=== PATIENT | female | born 1960 | race Hispanic/Latino ===

== ENCOUNTER 2017-10-16 06:59 | Day surgery (SDC) | payer OTHER ==
[2017-10-15 15:01] VITALS: BP 118/70
[2017-10-15 15:08] LABS: APPEARANCE,URINE Clear (CLEAR); BILIRUBIN,URINE Negative (NEGATIVE); COLOR,URINE STRAW (YELLOW); GLUCOSE, URINE (UA) >=1000 mg/dL (NEGATIVE); KETONES,URINE Negative (NEGATIVE); LEUKOCYTE ESTERASE ,URINE Negative (NEGATIVE); NITRATE,URINE Negative (NEGATIVE); OCCULT BLOOD,URINE Negative (NEGATIVE); PH,URINE 6.5 (5.0-8.0); PROTEIN,URINE Negative (NEGATIVE)
[2017-10-15 15:15] LABS: BASOPHILS % (AUTO) 0.5 % (0.0-5.0); EOSINOPHILS % (AUTO) 1.8 % (0.0-8.0); HEMATOCRIT 37.1 % (36-48); LYMPHOCYTES % (AUTO) 26.6 % (21.0-51.0); MEAN CORPUSCULAR HEMOGLOBIN 26.6 pg (27.0-33.0); MEAN CORPUSCULAR HGB CONC 33.9 g/dL (32.0-36.0); MEAN CORPUSCULAR VOLUME 78.6 fL (79-99); MONOCYTES % (AUTO) 8.9 % (3.0-13.0); NEUTROPHILS % (AUTO) 62.2 % (40.0-77.0); PLATELET COUNT (AUTO) 212 K/uL (130-400); RED BLOOD CELL COUNT(AUTO) 4.72 MIL/uL (4.00-5.50); RED CELL DISTRIBUTION WIDTH 14.5 % (11.0-15.5); WHITE BLOOD COUNT (AUTO) 7.4 K/uL (4.8-10.8)
[2017-10-15 15:16] LABS: CREATININE 0.7 mg/dL (0.5-1.5)
[2017-10-15 15:20] LABS: INR 0.97 (0.85-1.15); PARTIAL THROMBOPLASTIN TIME 26.2 SEC (26.3-35.5); PROTHROMBIN TIME 10.2 SEC (9.6-11.6)
[2017-10-15 15:46] LABS: BACTERIA,URINE Rare /HPF (None Seen); RBC,URINE None Seen /HPF (0-1); SQUAMOUS EPITHELIAL CELL,UR None Seen /HPF (0-2); WBC,URINE 0-1 /HPF (0-1)
[2017-10-16] VITALS (11 sets, daily range): BP systolic 101–131; BP diastolic 48–68
[~2017-10-16] VITALS: Ht 168.9 cm; Wt 88.3 kg
[~2017-10-16 06:59] MED LIST: ASPI-555 PO; CANA300T PO; CHOL500050 PO; DULO30CA2 PO; GABA-531 PO; HYDR-3421 PO; INSU100I15 SQ; INSU300I SQ; LISI-613 PO; LORA-705 PO; LOVA20TA3 PO; METF-527 PO; TRAZ-185 PO
[2017-10-16] MEDS ORDERED: SODIUM CHLORIDE 0.9% 1000ML 1,000 ML IV ONE ×2 (07:13→07:37)
[2017-10-16] MEDS ORDERED: HEPARIN SODIUM 1000UNIT/ML 10ML VIAL ONE (07:45)
[2017-10-16] MEDS ORDERED: ISOVUE-370 50ML VIAL IV ONE ×2 (07:46→08:56)
[2017-10-16] MEDS ORDERED: IOPAMIDOL-370 100 ML VIAL IV ONE ×2 (07:46→07:56)
[2017-10-16] MEDS ORDERED: NITROGLYCERIN 5 MG/ML 10 ML VIAL IV ONE (07:46)
[2017-10-16] MEDS ORDERED: LIDOCAINE HCL-MPF 2% 5ML VIAL ONE (07:54)
[2017-10-16] MEDS ORDERED: BIVALIRUDIN 250 MG/VIAL IV ONE (07:56)
[2017-10-16] MEDS ORDERED: MIDAZOLAM HCL 1 MG/ML 2ML VIAL ONE (07:57)
[2017-10-16] MEDS ORDERED: ONDANSETRON HCL 4 MG/2 ML VIAL ONE (07:59)
[2017-10-16] MEDS ORDERED: SODIUM CHLORIDE 0.9% 500ML 500 ML IV SCH (08:00)
[2017-10-16] MEDS ORDERED: SODIUM CHLORIDE 0.9% 1000ML 1,000 ML IV SCH (09:08)
[2017-10-16] MEDS ORDERED: GLUCAGON 1MG KIT 1 MG ML IM PRN (09:15)
[2017-10-16] MEDS ORDERED: DEXTROSE 50%-WATER 50 ML DISP.SYRIN IV PRN (09:15)
[2017-10-16] MEDS ORDERED: INSULIN HUMULIN R 100 UNIT/ML 3ML SQ SCH (11:30)
[2017-10-16] MEDS ORDERED: ACETAMINOPHEN 325 MG TAB ONE (12:49)
== END 2017-10-16 14:00 | disposition home or self-care (01) ==
LOC: DAH 06:59
PROVIDERS: ATTEND Internal Medicine Cardiovascular Disease
DX: I25.10 Atherosclerotic heart disease of native coronary artery without angina pectoris (principal); I99.8 Other disorder of circulatory system; E11.9 Type 2 diabetes mellitus without complications; I10 Essential (primary) hypertension; E78.4 Other hyperlipidemia; F32.89 Other specified depressive episodes; M19.90 Unspecified osteoarthritis, unspecified site; Z90.49 Acquired absence of other specified parts of digestive tract; Z98.890 Other specified postprocedural states; Z79.82 Long term (current) use of aspirin; Z79.4 Long term (current) use of insulin
CPT/HCPCS: 36415; 71045; 80048; 81001; 82948; 85025; 85610; 85730; 93005; 93458; 99152; 99153; A4606; C1760; C1894; J0583; J1644; J2250; J2405; J3490; J7030; Q9967

== ENCOUNTER 2023-01-23 08:03 | Observation (INO) | payer OTHER ==
[2023-01-22 14:01] LABS: BASOPHILS # (AUTO) 0.03 K/uL (0.00-0.20); BASOPHILS % (AUTO) 0.6 % (0.0-5.0); EOSINOPHILS # (AUTO) 0.12 K/uL (0.00-0.70); EOSINOPHILS % (AUTO) 2.2 % (0.0-8.0); HEMATOCRIT 37.4 % (36-48); IMMATURE GRANULOCYTE ABSOLUTE 0.02 K/uL (0-1); LYMPHOCYTES # (AUTO) 1.4 K/uL (1.0-4.8); LYMPHOCYTES % (AUTO) 25.2 % (21.0-51.0); MEAN CORPUSCULAR HEMOGLOBIN 26.7 pg (27.0-33.0); MEAN CORPUSCULAR HGB CONC 32.4 g/dL (32.0-36.0); MEAN CORPUSCULAR VOLUME 82.6 fL (79-99); MONOCYTES # (AUTO) 0.4 K/uL (0.1-1.0); NEUTROPHILS # (AUTO) 3.5 K/uL (1.8-7.7); NEUTROPHILS % (AUTO) 64.6 % (40.0-77.0); PLATELET COUNT (AUTO) 151 K/uL (130-400); RED BLOOD CELL COUNT(AUTO) 4.53 MIL/uL (4.00-5.50); RED CELL DISTRIBUTION WIDTH 13.6 % (11.0-15.5); WHITE BLOOD COUNT (AUTO) 5.4 K/uL (4.8-10.8)
[2023-01-22 14:10] LABS: CREATININE 0.9 mg/dL (0.5-1.5); POTASSIUM 4.1 mmol/L (3.5-5.1)
[2023-01-22 15:01] VITALS: BP 117/59; PULSE 64; RESP 17
[~2023-01-23] VITALS: Ht 167.6 cm; Wt 74.3 kg
[2023-01-23] VITALS (23 sets, daily range): BP systolic 103–131; BP diastolic 52–69; PULSE 65–84; RESP 11–18
[~2023-01-23 08:03] MED LIST changes: -ASPI-555 PO; +ASPI-556 PO; +ASPI1TAB7 PO; -CANA300T PO; +DULA3PEN SQ; -DULO30CA2 PO; +FREM225A SQ; -GABA-531 PO; -INSU100I15 SQ; -INSU300I SQ; +KETO.5OS OD; +KRIL500C PO; -LISI-613 PO; +LISI2.5T13 PO; -LORA-705 PO; -LOVA20TA3 PO; +LOVA40TA2 PO; -METF-527 PO; +METO-408 PO; +MONT-39 PO; +TOPI100T37 PO; +VIBE75TA PO; +[UNRECOGNIZED DRUG - CODE] PO
[2023-01-23] MEDS ORDERED: 0.9%NACL 1000ML 1,000 ML IV ONE (09:16)
[2023-01-23] MEDS ORDERED: CEFAZOLIN SODIUM 1 GM VIAL ONE (09:16)
[2023-01-23] MEDS ORDERED: LIDOCAINE PF 100MG/5ML (2%) SYRINGE 5ML ONE (10:54)
[2023-01-23] MEDS ORDERED: PROPOFOL 10 MG/ML 20ML VIAL IV ONE (10:56)
[2023-01-23] MEDS ORDERED: ROCURONIUM 10MG/1ML SYR 10 MG/ML ML ONE ×2 (10:57→11:50)
[2023-01-23] MEDS ORDERED: MIDAZOLAM HCL 1 MG/ML 2ML VIAL ONE (10:57)
[2023-01-23] MEDS ORDERED: FENTANYL CITRATE PF 50 MCG/1 ML 2ML VIAL ONE ×2 (10:57→11:51)
[2023-01-23] MEDS ORDERED: DEXAMETHASONE SOD PHOSPHATE 10MG/ML 1ML VIAL ONE (11:16)
[2023-01-23] MEDS ORDERED: PHENYLEPHRINE HCL 10 MG/ML 1ML VIAL IV ONE (11:23)
[2023-01-23] MEDS ORDERED: NEOSTIGMINE 5MG/5ML SYR IV ONE (11:23)
[2023-01-23] MEDS ORDERED: GLYCOPYRROLATE 1 MG/5 ML SYRINGE ONE (11:26)
[2023-01-23] MEDS ORDERED: ONDANSETRON 4MG INJ ONE ×2 (11:26→15:11)
[2023-01-23] MEDS ORDERED: CEFAZOLIN SODIUM 2 GM VIAL IVPB ONE (11:42)
[2023-01-23] MEDS ORDERED: ATROPINE 1MG SYG IVP ONE (11:52)
[2023-01-23] MEDS ORDERED: TRANEXAMIC ACID 1000MG/10ML ONE (11:59)
[2023-01-23] MEDS ORDERED: BUPIVACAINE/PF 0.25% 30ML VIAL IJ ONE (12:58)
[2023-01-23] MEDS ORDERED: CALDOLOR 800MG+NS 250ML 250 ML IV ONE (13:30)
[2023-01-23] MEDS ORDERED: HYDROCODONE PO (13:30)
[2023-01-23] MEDS ORDERED: APAP PO (13:30)
[2023-01-23] MEDS ORDERED: CEFAZOLIN SODIUM 1 GM VIAL IVPB ONE (13:30)
[2023-01-23] MEDS: HYDROCODONE/ACETAMINOPHEN 10/325 MG TAB PO PRN ×2 (14:52→20:26)
[2023-01-23] MEDS ORDERED: CEFAZOLIN SODIUM 2 GM VIAL ONE (15:12)
[2023-01-24] MEDS: HYDROCODONE/ACETAMINOPHEN 10/325 MG TAB PO PRN ×5 (00:25→17:45)
[2023-01-24 04:05] VITALS: BP 115/52; PULSE 66; RESP 18
[2023-01-24 08:00] VITALS: BP 109/49; PULSE 69; RESP 17
[2023-01-24 08:20] VITALS: O2SAT 99
[2023-01-24 12:00] VITALS: BP 107/77; PULSE 63; RESP 18
[2023-01-24 16:00] VITALS: BP 140/67; PULSE 72; RESP 17
== END 2023-01-24 18:15 | disposition home or self-care (01) ==
LOC: DAH 08:03 → DAHIP 08:04 → DAH 08:04 → 4BH 18:00
PROVIDERS: ADMIT Orthopaedic Surgery; ATTEND Orthopaedic Surgery
DX: M17.12 Unilateral primary osteoarthritis, left knee (principal); Z20.822 Contact with and (suspected) exposure to COVID-19; I10 Essential (primary) hypertension; E78.00 Pure hypercholesterolemia, unspecified; F41.8 Other specified anxiety disorders; K21.9 Gastro-esophageal reflux disease without esophagitis; E66.9 Obesity, unspecified; E11.9 Type 2 diabetes mellitus without complications; Z79.899 Other long term (current) drug therapy
CPT/HCPCS: 80048; 85025; 87426; 36415; 97039 ×4; 96365; 96368; 27599; 64447; 82948 ×6; 97161; 97116; 97530; A6260; G0378 ×24; A4649 ×4; C1713 ×2; L1830; J7030 ×2; J3010 ×2; J0690 ×3; J3490 ×3; J1100; J2710; J2001; J0461; J2250; J2704; J2405 ×2; J2371; J1741; A6223; G0168; C1776 ×2; A6212

== ENCOUNTER → 2023-04-26 | Outpatient (CLI) | payer OTHER ==
[~2023-04-26] MED LIST changes: +APAP PO; +HYDROCODONE PO
== END | disposition home or self-care (01) ==
LOC: RAH 10:43
PROVIDERS: ATTEND Internal Medicine Gastroenterology
DX: R68.81 Early satiety (principal); R10.13 Epigastric pain
CPT/HCPCS: 78264; A9541

== ENCOUNTER 2023-08-23 17:13 | Emergency (ER) | payer OTHER ==
[~2023-08-23] VITALS: Ht 167.6 cm; Wt 73.9 kg
[2023-08-23 17:20] VITALS: BP 129/69; PULSE 62; RESP 18; O2SAT 100
[2023-08-23 18:05] LABS: BASOPHILS # (AUTO) 0.02 K/uL (0.00-0.20); BASOPHILS % (AUTO) 0.4 % (0.0-5.0); EOSINOPHILS % (AUTO) 1.9 % (0.0-8.0); HEMATOCRIT 35.8 % (36-48); IMMATURE GRANULOCYTE ABSOLUTE 0.02 K/uL (0-1); LYMPHOCYTES # (AUTO) 1.6 K/uL (1.0-4.8); LYMPHOCYTES % (AUTO) 30.4 % (21.0-51.0); MEAN CORPUSCULAR HEMOGLOBIN 26.2 pg (27.0-33.0); MEAN CORPUSCULAR VOLUME 79.4 fL (79-99); MONOCYTES # (AUTO) 0.5 K/uL (0.1-1.0); MONOCYTES % (AUTO) 10.1 % (3.0-13.0); NEUTROPHILS # (AUTO) 2.9 K/uL (1.8-7.7); NEUTROPHILS % (AUTO) 56.8 % (40.0-77.0); PLATELET COUNT (AUTO) 135 K/uL (130-400); RED BLOOD CELL COUNT(AUTO) 4.51 MIL/uL (4.00-5.50); RED CELL DISTRIBUTION WIDTH 14.2 % (11.0-15.5); WHITE BLOOD COUNT (AUTO) 5.2 K/uL (4.8-10.8)
[2023-08-23 18:14] LABS: APPEARANCE,URINE CLEAR (CLEAR); BILIRUBIN,URINE NEGATIVE (NEGATIVE); COLOR,URINE LIGHT-YELLOW (YELLOW); GLUCOSE, URINE (UA) NEGATIVE (NEGATIVE); KETONES,URINE NEGATIVE (NEGATIVE); LEUKOCYTE ESTERASE ,URINE NEGATIVE Leu/uL (NEGATIVE); NITRATE,URINE NEGATIVE (NEGATIVE); OCCULT BLOOD,URINE NEGATIVE (NEGATIVE); PROTEIN,URINE NEGATIVE (NEGATIVE); UROBILINOGEN,URINE 0.2 mg/dL (0.2-1.0)
[2023-08-23 18:23] LABS: HCG,QUALITATIVE URINE NEGATIVE (NEGATIVE)
[2023-08-23 18:25] LABS: CREATININE 0.9 mg/dL (0.5-1.5); POTASSIUM 3.7 mmol/L (3.5-5.1)
[2023-08-23 18:25] LABS: ADD UA MICROSCOPIC NO
[2023-08-23 18:29] LABS: ALBUMIN 3.7 g/dL (3.5-5.0); BILIRUBIN,TOTAL 0.3 mg/dL (0.2-1.0); TOTAL PROTEIN, SERUM 7.4 g/dL (6.0-8.3)
[2023-08-23] MEDS: LACTATED RINGERS 1000ML 1,000 ML IV ONE (19:10)
[2023-08-23] MEDS: METOCLOPRAMIDE 10 MG/2 ML VIAL IVP ONE (19:11)
[2023-08-23] MEDS ORDERED: ONDA4TAB10 PO (22:20)
[2023-08-23] MEDS ORDERED: METO5 PO (22:26)
== END 2023-08-23 23:06 | disposition home or self-care (01) ==
LOC: EDH 17:13
DX: R10.9 Unspecified abdominal pain (principal); F41.9 Anxiety disorder, unspecified; F32.A Depression, unspecified; E78.00 Pure hypercholesterolemia, unspecified; I10 Essential (primary) hypertension; K31.84 Gastroparesis; E11.9 Type 2 diabetes mellitus without complications; Z79.82 Long term (current) use of aspirin; Z79.899 Other long term (current) drug therapy; Z90.49 Acquired absence of other specified parts of digestive tract; Z98.51 Tubal ligation status
CPT/HCPCS: 99285; 74176; 96374; 71045; 83735; 84484; 80053; 83690; 85025; 81003; 81025; 36415; 93005 ×2; J7120; J2765

== ENCOUNTER → 2025-05-25 | Outpatient (CLI) | payer OTHER, MEDICAID ==
[~2025-05-25] MED LIST changes: +METO5 PO; +TOPI-258 PO; -TOPI100T37 PO
[2025-05-25 12:48] LABS: CREATININE 0.8 mg/dL (0.5-1.0); GLOMERULAR FILTR. RATE CALC 82.0 mL/min (>90); UREA NITROGEN, BLOOD 15.0 mg/dL (7-18)
== END | disposition home or self-care (01) ==
LOC: LAB 11:48
PROVIDERS: ATTEND Internal Medicine Gastroenterology
DX: R10.12 Left upper quadrant pain (principal)
CPT/HCPCS: 36415; 82565; 84520

== ENCOUNTER → 2025-06-01 | Outpatient (CLI) | payer OTHER, MEDICAID ==
[~2025-06-01] MED LIST changes: +IOHEXOL 350 MG/ML 100ML INFUS..BTL IV ONE
--- NOTE | 2025-06-01 16:28 | HMCIMG ---
EXAM: CT SCAN OF THE ABDOMEN AND PELVIS WITH CONTRAST Clinical statement: Left upper quadrant pain. STUDY PROTOCOL: CT radiation dose protocol was performed in accordance with the principles of ALARA. A multislice CT scan of the abdomen and pelvis was performed with intravenous and oral contrast. Sections are obtained from the diaphragms to the inguinal region, including portal venous and delayed excretory phase (7-minute renal delay) images. RADIATION DOSE: CTDIvol 17.80 mGy; DLP 989.60 mGycm. CONTRAST: Standard dose of intravenous and oral contrast administered. COMPARISON: None provided. FINDINGS: LUNG BASE: No evidence of pleural effusion, atelectasis, or consolidation in the visualized lung bases. LIVER: Liver is normal in size, morphology, and attenuation with smooth margins. Mild diffuse hepatic steatosis is present. A few tiny calcified nodules are seen, likely sequelae of prior granulomatous disease. No focal hepatic mass or biliary ductal dilatation is identified. [place] hepatis is unremarkable. Portal vein, hepatic veins, and inferior vena cava are normal in caliber, with the portal vein measuring approximately 12 mm. GALL BLADDER: Status post cholecystectomy. PANCREAS: Pancreas is normal in size, morphology, and enhancement. The main pancreatic duct is not dilated. No peripancreatic fat stranding or fluid collection is seen. SPLEEN: Spleen is normal in size, morphology, and attenuation without focal lesion. The splenic vein measures approximately 12 mm and is mildly prominent. A few small perisplenic collateral vessels are present. KIDNEYS: Both kidneys are normal in size, shape, position, and enhancement. No renal mass, calcification, or nephrolithiasis is seen. No hydronephrosis or other evidence of obstructive uropathy is present. Visualized ureters are normal in caliber without filling defect on excretory phase images. GIT /T/ PERITONEAL CAVITY: Stomach is distended with normal wall thickness and configuration. The gastroesophageal junction, pylorus, and duodenum appear normal. Jejunal and ileal loops demonstrate normal distribution, caliber, and wall thickness without obstruction or inflammatory change. No CT evidence of acute appendicitis. Rectum and colon are well distended with fecal matter but nondilated. No free intraperitoneal fluid or free air is identified. Mesenteric fat and omentum are unremarkable. LYMPHNODES: No pathologically enlarged abdominal or pelvic lymph nodes are identified. RETROPERITONEUM: Both adrenal glands are normal in morphology and attenuation. The abdominal aorta and inferior vena cava are normal in course and caliber. PELVIS: Urinary bladder is normal in wall thickness and contour. Uterus appears normal for age. No adnexal mass or pelvic fluid collection is identified. MUSCULOSKELETAL: Osteopenia is present with mild degenerative changes in the dorsolumbar spine and mild anterolisthesis of L4 on L5. No acute or destructive osseous lesion is identified. OTHER: Extra-abdominal and paraspinal soft tissues are unremarkable. IMPRESSION: * No CT evidence of acute intra-abdominal or pelvic pathology to account for left upper quadrant pain; specifically, spleen, stomach, pancreas, kidneys, and bowel appear unremarkable on this contrast-enhanced study. Clinical correlation is recommended, and further evaluation should be guided by symptom persistence and laboratory findings. * Mild hepatic steatosis with a few tiny calcified hepatic nodules, most consistent with benign granulomatous sequelae, without focal mass or biliary dilatation. * Mild prominence of the portal and splenic veins (both approximately 12 mm) with a few perisplenic collateral vessels, which may represent early or mild portal hypertensive changes versus a normal variant; correlation with liver function tests, prior imaging, and clinical history of chronic liver disease is advised. * Osteopenia with mild degenerative changes of the dorsolumbar spine and mild anterolisthesis of L4 on L5, which may contribute to chronic back or flank discomfort rather than isolated left upper quadrant visceral pain; consider clinical spine assessment and further musculoskeletal imaging if symptoms localize to the spine. /[place]
== END | disposition home or self-care (01) ==
LOC: RAH 09:54
PROVIDERS: ATTEND Internal Medicine Gastroenterology
DX: K76.0 Fatty (change of) liver, not elsewhere classified (principal); M85.88 Other specified disorders of bone density and structure, other site; M43.16 Spondylolisthesis, lumbar region; K76.89 Other specified diseases of liver; M47.816 Spondylosis without myelopathy or radiculopathy, lumbar region; R10.12 Left upper quadrant pain; Z90.49 Acquired absence of other specified parts of digestive tract
CPT/HCPCS: 74177; Q9967 ×2